=== PATIENT | female | born 1975 | race Asian ===

== ENCOUNTER 2017-05-05 12:30 | Day surgery (SDC) | payer BC ==
[~2017-05-05 12:30] MED LIST: PREN0.01 PO
[2017-05-05 13:31] VITALS: BP 130/70; PULSE 93; RESP 14; TEMP 97.8; O2SAT 100
[2017-05-05 14:09] VITALS: BP 130/77; PULSE 83; RESP 18; TEMP 97.7; O2SAT 100
[2017-05-05] MEDS ORDERED: LIDOCAINE HCL 1% 20 ML VIAL ONE (14:16)
[2017-05-05 14:24] VITALS: BP 116/73; PULSE 85; RESP 20; O2SAT 99
--- NOTE | 2017-05-05 15:15 | RADRPT ---
EXAM DATE/TIME: 05/05/2017 13:23 [place] COMPARISON: No previous studies available for comparison. INDICATIONS : Left thyroid nodule. MEDICAL HISTORY : Left thyroid nodule. SURGICAL HISTORY : ENCOUNTER: Initial ACUITY: 4 - 6 days PAIN SCORE: 0/10 LOCATION: Left neck ORGAN: Left thyroid lobe SPECIMENS: Five fine needle aspirate(s) submitted for pathologic evaluation. DEVICE: 22 gauge needle Post procedure scanning reveals no hematoma or other complication. The possibility does exist that the tissue obtained will be non-diagnostic. If the sample is non-shahida gnostic a repeat biopsy or surgical biopsy may need to be performed. TECHNIQUE: 1. Ultrasound guidance for needle biopsy. 2. Needle biopsy. The risks, benefits and alternatives to the procedure were explained and verbal and written consent w as obtained. The site was prepped in sterile fashion. Full sterile technique was used, including ca p, mask, sterile gloves and gown and a large sterile sheet. Hand hygiene and 2% chlorhexidine and/or betadine/alcohol prep was utilized per protocol for cutaneous antisepsis. The skin and subcutaneous tissues were infiltrated with local anesthetic solution. Sterile gel and sterile probe cover were u tilized for ultrasound guidance. With the patient on the ultrasound table, images were obtained. A needle was advanced into the identified target and the number of specimens as above obtained and john bmitted for pathologic evaluation. The patient tolerated the procedure well and left the ultrasound suite in stable condition. CONCLUSION: Uncomplicated ultrasound guided needle biopsy. Frederick Fink MD on May 05, 2017 at 14:27 Board Certified Radiologist. This report was verified electronically.
== END 2017-05-05 15:07 | disposition home or self-care (01) ==
LOC: HRAD 12:30 → HRIP 12:37 → HRAD 15:07
PROVIDERS: ATTEND Physical Medicine & Rehabilitation
DX: E04.1 Nontoxic single thyroid nodule (principal)
CPT/HCPCS: 10022; 76942; 88172; 88173